=== PATIENT | male | born 1975 | race Caucasian/White ===

== ENCOUNTER → 2020-09-28 | Outpatient (CLI) | payer OTHER ==
--- NOTE | 2020-09-28 17:23 | REP ---
INDICATION: PAIN RT SHOULDER. COMPARISON: None. TECHNIQUE: Three views right shoulder provided peer FINDINGS: The right glenohumeral and acromioclavicular joints are normally aligned. No fracture or subluxation is seen. Periarticular soft tissues are unremarkable. IMPRESSION: Negative right shoulder radiographs. <Electronically signed by Danyel Yun > 09/28/20 [id number]
== END ==
LOC: M RAD 16:43
PROVIDERS: ATTEND Physician Assistant
DX: M25.511 Pain in right shoulder (principal)